=== PATIENT | female | born 1960 | race Caucasian/White ===

== ENCOUNTER 2023-04-28 22:23 | Emergency (ER) | payer BC, MEDICARE ==
[2023-04-28] MEDS ORDERED: Ondansetron PF 4 MG/2 ML Vial ONE (23:17)
[2023-04-28 23:34] LABS: #Eosinphils 0.1 thou/uL (0.0-0.7); #Monocytes 0.3 thou/uL (0.11-0.59); #Neutrophils 2.2 thou/uL (1.40-6.50); %Basophils 0.8 % (0.0-1.0); %Eosinophils 1.6 % (0.0-10.0); %Monocytes 6.5 % (0.0-10.0); %Neutrophils 43.9 % (42.0-75.0); Hematocrit 38.5 % (36.0-47.0); Hemoglobin 13.3 g/dL (12.0-16.0); Mean Corpuscular HGB CONC 34.5 g/dL (32.0-36.0); Mean Corpuscular Hemoglobin 30.8 pg (27.0-31.0); Mean Corpuscular Volume 89.1 fl (78.0-98.0); Mean Platelet Volume 8.9 fL (7.4-10.4); Platelet Count 248 10x3/uL (130-400); RBC Distribution Width 11.4 % (11.5-14.5); Red Blood Cell (RBC) Count 4.32 mill/uL (4.20-5.40); White Blood Cell (WBC) Count 4.9 10x3/uL (4.8-10.8)
[2023-04-28 23:58] LABS: ALT (SGPT) 24 U/L (8-55); AST (SGOT) 25 U/L (5-34); Alkaline Phosphatase 134 U/L (40-110); Anion Gap 16 mmol/L (10-20); BUN (Urea Nitrogen) 13 mg/dL (9.8-20.1); Bilirubin, Total 0.4 mg/dL (0.2-1.2); Calc. Creatinine Clearance 0 mL/min (70-130); Calcium 9.5 mg/dL (7.8-10.44); Carbon Dioxide 23 mmol/L (23-31); Chloride 100 mmol/L (98-107); Estimated GFR 95; Globulin 2.8 g/dL (2.4-3.5); Glucose 123 mg/dL (80-115); Potassium 3.6 mmol/L (3.5-5.1); Protein, Total 6.8 g/dL (5.8-8.1); Sodium 135 mmol/L (136-145)
[2023-04-29 00:01] LABS: Troponin I Less than 0.010 ng/mL (< 0.028)
[2023-04-29 01:47] LABS: Troponin I Less than 0.010 ng/mL (< 0.028)
== END 2023-04-29 02:12 | disposition home or self-care (01) ==
LOC: ERS 22:23
DX: R42 Dizziness and giddiness (principal); R11.0 Nausea; I10 Essential (primary) hypertension
CPT/HCPCS: 36415; 71045; 80053; 83880; 84484; 85025; 85379; 93005; 96361; 96374; J2405